=== PATIENT | female | born 1950 | race Caucasian/White ===

== ENCOUNTER → 2018-03-18 12:46 | Outpatient (CLI) | payer MEDICARE, OTHER, SELFPAY ==
--- NOTE | 2018-03-18 12:50 | CT_ITS ---
STUDY: CT MAXILLOFACIAL SINUSES REASON FOR EXAM: Female, 67 years old. Sinusitis RADIATION DOSAGE (If Supplied By Facility): CTDIvol = ( 33.45 ) mGy, DLP = ( 696.05 ) mGycm TECHNIQUE: The patient was scanned in a multi detector CT scanner. High resolution axial imaging was performed without the administration of intravenous contrast material. Sagittal and coronal images were reconstructed. Individualized dose optimization techniques were used for this CT. COMPARISON: None. FINDINGS: FRONTAL SINUSES: Normal aeration, without mucosal inflammatory disease. ETHMOIDAL SINUSES: Normal aeration, without mucosal inflammatory disease. MAXILLARY SINUSES: Normal aeration, without mucosal inflammatory disease. SPHENOIDAL SINUSES: Normal aeration, without mucosal inflammatory disease. There is patency of the bilateral maxillary infundibuli with normal uncinate processes, ethmoid bullae, and hiatus semilunaris. There is a kathi bullosa of the right middle turbinate. Normal bilateral inferior turbinates. There is a left sided nasal septal deviation, but without a nasal septal spur. There is patency of the bilateral nasal airways. The visualized osseous structures are normal. The visualized bilateral orbital contents are normal. CT/Sinus/Facial Bone IMPRESSION: There is NO active sinusitis. The ostiomeatal units are patent. Electronically Signed: Nando Thurman MD at 7:13 EST , Service support ,
== END ==
PROVIDERS: Family Provider Internal Medicine; PCP Internal Medicine
DX: J32.0 Chronic maxillary sinusitis (principal); R59.1 Generalized enlarged lymph nodes
CPT/HCPCS: 70486

== ENCOUNTER → 2018-05-24 13:03 | Outpatient (CLI) | payer MEDICARE, OTHER, SELFPAY ==
--- NOTE | 2018-05-24 13:23 | RAD_ITS ---
HISTORY: Pre-op EXAM: XR Chest 2 Views: COMPARISON: None FINDINGS: # of images incl. paperwork: 2 LINES/DEVICES: None. LUNGS: Radiographically clear. No consolidation, edema or effusion. No pneumothorax. Incidental calcified granuloma anterior aspect right midlung. MEDIASTINUM AND CARDIOVASCULAR STRUCTURES: Cardiac silhouette not enlarged. Central airways and mediastinal contour are unremarkable. BONES AND SOFT TISSUES: Unremarkable. RAD/Chest PA and Lateral IMPRESSION: No radiographic evidence of acute cardiopulmonary disease. at 0022 Reported and signed by: Luc Fu MD Electronically Signed: Luc Fu, at 0:21 EST Tel , Service support ,
--- NOTE | 2018-05-24 13:35 | EKG12_ITS ---
Test Reason : PREOP Blood Pressure : / mmHG Vent. Rate : 056 BPM Atrial Rate : 056 BPM P-R Int : 144 ms QRS Dur : 074 ms QT Int : 430 ms P-R-T Axes : 043 -18 027 degrees QTc Int : 414 ms Sinus bradycardia Low voltage QRS Inferior infarct , age undetermined Abnormal ECG Confirmed by PATRICIO ARGUELLES, LUIGI ([id number]), field map editor SERINA HERNANDEZ ([id number]) on 05/25/2018 4:47:31 PM Referred By: OUT DOCTOR Confirmed By:LUIGI CURRY MD
[2018-05-24 13:53] LABS: Hematocrit 45.7 % (37-47); Hemoglobin 15.2 g/dl (12.0-15.0); Mean Corp Hgb Conc 33.3 g/gl (32-36); Mean Corpuscular Hgb 30.5 pg (27.0-32.0); Mean Corpuscular Volume 91.6 fL (81-99); Mean Platelet Vol. 10.2 fl (6.2-12.0); Platelet Count 286 K/mm3 (150-450); RBC Distribution Width CV 12.8 % (11.6-14.6); RBC Distribution Width SD 41.8 fl (35.1-43.9); Red Blood Count 4.99 M/mm3 (4.2-5.4); White Blood Count 6.5 K/mm3 (4.4-11.0)
[2018-05-24 14:11] LABS: Scan Indicated on CBC? Y/N NO
[2018-05-24 14:19] LABS: Anion Gap 9 (5-15); BUN 14 mg/dL (7-18); BUN/Creat Ratio 14.9 RATIO (10-20); Calcium,Total 9.3 mg/dL (8.5-10.1); Chloride 104 mmol/L (98-107); Creatinine, Serum 0.94 mg/dL (0.55-1.02); EST Glomerular Filtration Rate 63 mL/min (>60); Est Glom Filt Rate - Afr Amer 77 mL/min (>60); Glucose 83 mg/dL (74-106); Sodium Level 142 mmol/L (136-145)
== END ==
PROVIDERS: Family Provider Internal Medicine; PCP Internal Medicine
DX: Z01.818 Encounter for other preprocedural examination (principal)
CPT/HCPCS: 36415; 71046; 80048; 85027; 93005

== ENCOUNTER 2021-02-14 16:07 | Outpatient (CLI) | payer MEDICARE, OTHER, SELFPAY ==
[2021-02-14] MEDS: 0.9% Saline Lock 10 ML Syringe IV (16:19)
[2021-02-14 16:23] VITALS: BP 126/74; PULSE 63; RESP 16; TEMP 36.7; O2SAT 97; BMI 33.2
[2021-02-14 17:03] VITALS: BP 111/66; PULSE 62; RESP 16; TEMP 36.6; O2SAT 97
[2021-02-14 18:03] VITALS: BP 118/74; PULSE 62; RESP 16; TEMP 36.7; O2SAT 97
== END 2021-02-14 18:10 | disposition home or self-care (01) ==
LOC: MS3OUT 16:07 → MS3 16:08
PROVIDERS: PCP Internal Medicine; Referring Provider Nurse Practitioner Adult Health; Visit Provider Nurse Practitioner Adult Health
DX: Z23 Encounter for immunization (principal); U07.1 COVID-19
CPT/HCPCS: J7050; M0243; A4216; Q0240

== ENCOUNTER 2023-06-12 15:20 | Emergency (ER) | payer MEDICARE, SELFPAY ==
[2023-06-12 15:21] VITALS: BP 157/89; PULSE 78; RESP 14; TEMP 36.2; O2SAT 99; BMI 36.7
--- NOTE | 2023-06-12 15:36 | ED.VIS.DYS ---
HPI History of Present Illness Chief Complaint: Shortness of Breath Informant: patient Narrative Narrative: Patient presents with intermittent dyspnea. Patient was referred by urgent care at [facility]. Patient states that everyone in her house has been sick recently. They have all had flu like symptoms. She does have a history of asthma. She has been using her albuterol and it does help but does not resolve the symptoms. She is never coughed up sputum or blood. She does have a slight cough. No fevers chills or myalgias. She has never had chest pain or back pain. She states sometimes she feels fine. If she is busy and doing things she feels fine. But if she sits down on the couch she will sometimes notice that she just wants to take a deeper breath. She evidently had a chest x-ray over at [facility] and was told that she had an inflated aorta but that it looked the same as the prior x-ray. She has no history of heart disease. No history of heart disease in her family. No recent travel surgery immobilization personal or family history of DVT or PE. She is not a smoker. Not diabetic. Not hypertensive. No known cholesterol. [facility] Medical History Hypothyroid Home Medications Levothyroxine 50 mcg DAILY 03/30/13 [History Last Taken Unknown] albuterol sulfate 90 mcg/actuation aerosol inhaler (Ventolin HFA) 1 puff inhalation Q6H PRN PRN Shortness Of Breath 03/30/13 [History Last Taken Unknown] montelukast 10 mg tablet (Singulair) 10 mg PO DAILY 08/26/22 [History Last Taken Unknown] Allergy/AdvReac Type Severity Reaction Status Date / Time topiramate [From Topamax] AdvReac Mild Other Verified 06/12/23 15:21 Surgical History H/O sinus surgery Social History Smoking Status: Never smoker ROS ROS ED ROS Narrative A complete review of systems was performed and is negative except as documented in the history of present illness. Some specific details below. Constitutional: No recent fevers or chills. No myalgias. EYE: No discharge, visual complaints, or pain. ENT: No difficulty swallowing. No swelling. No pain. No reflux symptoms. No exudate. No notable congestion. CV: No chest pain pressure tightness or palpitations. Respiratory: See history of present illness. GI: No abdominal pain. No nausea vomiting diarrhea. No blood in stool. : No frequency dysuria or hematuria. Musculoskeletal: No recent trauma. No pains. No swelling. Skin: No rash. Nondiaphoretic. Neuro: No weakness or numbness. Endocrine: No polyuria or polydipsia. EXAM Physical Exam Narrative Exam Narrative: CONSTITUTIONAL: Patient is nontoxic in appearance. The patient looks comfortable. Work of breathing looks normal. HEENT: No notable trauma. Mucous membranes moist. No exudate. No significant nasal congestion. No drainage. No sinus tenderness. EYES: No conjunctival injection. No pallor. NECK:No JVD. No stridor. CARDIOVASCULAR: Regular rate. Regular rhythm. No notable murmur. No JVD. Tones are not muffled. She is not tachycardic. Peripheral pulses are normal x 4. RESPIRATORY: No respiratory distress. Breathing is unlabored. No wheezes with regular breaths. But when I have the patient take a deep breath and blow out quickly she does have a slight expiratory wheeze. No rhonchi. No rales. No pain with a deep breath. No chest wall tenderness. Saturations are normal at 99% on room air showing no hypoxia. GASTROINTESTINAL: Not distended. Bowel sounds are normal. No tenderness. GENITOURINARY: No tenderness over the bladder. No CVA tenderness. MUSCULOSKELETAL: Atraumatic. No peripheral edema. No cord. No tenderness along the deep venous system. No asymmetry. No distended veins. Color is normal. Pulses are normal. NEUROLOGICAL: Patient is alert and appropriate. No focal deficit noted. SKIN: No noted rashes. No diaphoresis. PSYCHIATRIC: Patient is calm. Mood is appropriate. Const Vital Signs: 06/12/23 15:21 06/12/23 15:25 06/12/23 15:35 Temperature 97.2 F L Temperature Source Temporal Pulse Rate 78 Respiratory Rate 14 Respiratory Effort Short of Breath Respiratory Depth Normal Respiratory Pattern Tachypnea Blood Pressure 157/89 H Blood Pressure Mean 111 Pulse Ox 99 Oxygen Delivery Method Room Air Room Air Room Air 06/12/23 15:42 Temperature Temperature Source Pulse Rate 65 Respiratory Rate 18 Respiratory Effort Respiratory Depth Respiratory Pattern Blood Pressure Blood Pressure Mean Pulse Ox Oxygen Delivery Method MDM MDM MDM Narrative Medical decision making narrative: Patient's symptoms sound most consistent with a slight viral syndrome with possible mild exacerbation of her asthma. She has no pain. I will do chest x-ray as well as further workup here. She came over here with plan for blood work which we will do to make sure there is no sign of heart failure elevated troponin anemia or other acute issues. My independent interpretation of her two-view PA and lateral chest x-ray shows no acute process and final reading is similar. Her CBC shows no marked abnormalities. No anemia or elevated white count or thrombocytopenia. Her basic metabolic panel shows essentially normal electrolytes. Glucose is also normal. Her troponin is normal and actually quite low at 4. Her BNP is normal at 37.1. I discussed patient the options. I think that she likely has a slight viral syndrome with a little bit of bronchospasm. She is not acutely ill. She oftentimes has no symptoms. But she also has background asthma. We agreed that we will do a one-time dose of Decadron. This will help her with the bronchospasm. She already has inhalers at home to use as needed. Lab Data Attestation: I reviewed the patient's lab results. Labs: Laboratory Results - last 24 hr 06/12/23 15:40 WBC 5.9 RBC 4.76 Hgb 14.1 Hct 43.5 MCV 91.4 MCH 29.6 MCHC 32.4 RDW Std Deviation 42.3 RDW Coeff of Shaye 12.7 Plt Count 295 MPV 9.8 Immature Gran % (Auto) 0.300 Neut % (Auto) 60.5 Lymph % (Auto) 27.9 [place] % (Auto) 6.5 Eos % (Auto) 3.9 Baso % (Auto) 0.9 Absolute Neuts (auto) 3.6 Absolute Lymphs (auto) 1.64 Nucleated RBC % 0 Sodium 141 Potassium 3.7 Chloride 110 H Carbon Dioxide 27.0 Anion Gap 4 L BUN 13 Creatinine 0.92 Estim Creat Clear Calc 53.63 Est GFR (MDRD) Af Amer 77 Est GFR (MDRD) Non-Af 63 BUN/Creatinine Ratio 14.1 Glucose 98 Calcium 9.1 Troponin I High Sens 4 B-Natriuretic Peptide 37.1 Radiography Diagnostic Testing: Clinical Impression(s) from Imaging Studies Chest X-Ray 06/12/23 16:06 IMPRESSION: No acute findings in the chest. Electronically Signed: Zac Ulrich MD at 16:38 EST , EKG Initial EKG: Comments: My independent interpretation of the patient's EKG shows normal sinus rhythm with overall rate of 65. No ectopy. No acute ST elevation or depression. HI interval, QRS duration and QTc are normal. Discharge Plan Triage Chief Complaint: Shortness of Breath ED Provider: Jose Gregory Dx/Rx/DC Orders Clinical Impression: Asthma exacerbation Instructions: ED Asthma, Acute (Adult) Prescriptions: No Action montelukast [Singulair] 10 mg tablet 10 mg PO DAILY Levothyroxine 50 mcg DAILY Patient Comments: thyroid pill albuterol sulfate [Ventolin HFA] 1 INHALER inhaler 1 puff inhalation Q6H PRN PRN (Reason: Shortness Of Breath) Patient Comments: breathing Primary Care Provider: Heike Duran Referrals: Heike Duran MD [Primary Care Provider] - 3-5 Days if not improving Disposition Disposition: Home, Self Care
[2023-06-12] MEDS: Ipratropium/Albuterol Sulfate 3 ML AMPUL.NEB INHALATION (15:41)
[2023-06-12 15:42] VITALS: PULSE 65; RESP 18
[2023-06-12 15:50] LABS: Absolute Lymphocyte Count 1.64 X10^3/uL (0.83-4.51); Absolute Neutrophil Count 3.6 X10^3/uL (2.0-7.7); Basophil# 0.05 X10^3/uL; Basophil% 0.9 % (0-1); Eosinophil# 0.23 X10^3/uL; Eosinophils% 3.9 % (0-5); Hematocrit 43.5 % (37-47); Hemoglobin 14.1 g/dL (12.0-15.0); Lymphocyte # 1.64 X10^3/ul (0.83-4.51); Lymphocyte % 27.9 % (19-41); Mean Corp Hgb Conc 32.4 g/dL (32-36); Mean Corpuscular Hgb 29.6 pg (27.0-32.0); Mean Corpuscular Volume 91.4 fL (81-99); Mean Platelet Vol. 9.8 fl (6.2-12.0); Monocyte# 0.38 X10^3/uL; Monocyte% 6.5 % (0-10); NRBC Flagged by Analyzer 0 % (0-5); Neutrophil # 3.56 X10^3/uL (2.7-7.7); Neutrophil % 60.5 % (47-70); Platelet Count 295 K/mm3 (150-450); RBC Distribution Width CV 12.7 % (11.6-14.6); RBC Distribution Width SD 42.3 fl (35.1-43.9); Red Blood Count 4.76 M/mm3 (4.2-5.4); White Blood Count 5.9 K/mm3 (4.4-11.0)
--- NOTE | 2023-06-12 16:06 | RAD_ITS ---
EXAM: XR CHEST, 2 VIEWS CLINICAL INDICATION: SOB TECHNIQUE: Frontal and lateral views of the chest. COMPARISON: 05/24/2018 FINDINGS: LUNGS AND PLEURAL SPACES: Stable calcified granuloma in the right upper lobe. No pneumothorax. No effusion. HEART: Unremarkable. Cardiac silhouette not enlarged. MEDIASTINUM: Central airways and mediastinal contour are unremarkable. BONES/JOINTS: Unremarkable. No acute fracture. SOFT TISSUES: Unremarkable. RAD/Chest PA and Lateral IMPRESSION: No acute findings in the chest. Electronically Signed: Zac Ulrich MD at 16:38 EST ,
[2023-06-12 16:07] LABS: Anion Gap 4 (5-15); BUN 13 mg/dL (7-18); BUN/Creat Ratio 14.1 RATIO (10-20); Calcium,Total 9.1 mg/dL (8.5-10.1); Chloride 110 mmol/L (98-107); Creatinine, Serum 0.92 mg/dL (0.55-1.02); EST Glomerular Filtration Rate 63 mL/min (>60); Est Glom Filt Rate - Afr Amer 77 mL/min (>60); Estimated Creatinine Clearance 53.63 ml/min; Glucose 98 mg/dL (74-106); Potassium 3.7 mmol/L (3.5-5.1); Sodium Level 141 mmol/L (136-145); Troponin-I HS 4 pg/mL (3.0-54.0)
[2023-06-12 16:11] LABS: BNP,B-Type NATRIURETIC PEPTIDE 37.1 pg/mL (0-100)
[2023-06-12 16:57] VITALS: BP 124/75; PULSE 93; RESP 23; O2SAT 96
[2023-06-12] MEDS: dexAMETHasone 10 MG/ML Vial IV (17:02)
== END 2023-06-12 17:08 | disposition home or self-care (01) ==
PROVIDERS: Emergency Provider Emergency Medicine; PCP Internal Medicine; Visit Provider Emergency Medicine
DX: R06.02 Shortness of breath (principal); J45.901 Unspecified asthma with (acute) exacerbation; E03.9 Hypothyroidism, unspecified; Z79.899 Other long term (current) drug therapy
CPT/HCPCS: 71046; 80048; 83880; 84484; 85025; 87631; 93005; 94640; 96374; 99284